=== PATIENT | male | born 1960 | race Caucasian/White ===

== ENCOUNTER 2023-11-18 11:47 | Observation (INO) ==
--- OUTSIDE RECORDS SUMMARY | 2023-11-18 11:51 | External Medical Summary | Continuity of Care Document ---
Author Name Unknown Organization [id number] Address [address] [place] [phone] Care Team Providers Care Log Stacker Operator Name Role Phone Veronica Owens Primary Care Physician [phone] [id number] Date(s): 11/15/23 - 11/15/23 [facility] 0 [facility] [address] [place] [id number] Encounter Diagnosis Gout of left foot(Discharge Diagnosis) - 11/15/23 Hallux rigidus, left foot(Discharge Diagnosis) - 11/15/23 Metatarsalgia, left foot(Discharge Diagnosis) - 11/15/23 Plantar fasciitis, left(Discharge Diagnosis) - 11/15/23 Discharge Disposition: Home or Self Care Attending Physician: HAMILTON Beasley Christina L Allergies, Adverse Reactions, Alerts No Known Medication Allergies Assessment and Plan Extracted from: Title:Follow Up Visit Author:HAMILTON Beasley Ch ristina L Date:11/15/23 1.Gout of left foot At this point patient continues to do well with conservative treatment and 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 I have a hard timerecommending for patient to have surgery on this area when the tophus is not creating any frictionit is not causing an open wound is causing no pain or discomfortI think if anything were to change and worsen would recommend surgical intervention of tophus excision and first MPJ fusionbut at this point patient recommendedto continue supportive shoe gear with a wide soft toe box follow-up in 1 year or sooner if any problems arise. I spent 2 minute planning including prepping note and chart review. I spent 11 minute zslz-zz-nymy interaction with patient addressing issuesdiscussed in visit today. I spent 3 minute time in postop visitplanning including note finishing in depart process. Total time spent on patient visit 16 minutes. 2.Hallux rigidus, left foot 3.Metatarsalgia, left foot 4.Plantar fasciitis, left Immunizations Given and Recorded Vaccine Date Status Refusal Reason influenza virus vaccine, inactivated 02/24/20 Davis rded influenza virus vaccine, inactivated 03/07/19 Davis rded influenza virus vaccine, inactivated 01/24/18 Davis rded zoster vaccine, inactivated 1 02/27/19 Given zoster vaccine, inactivated 12/26/18 Given tetanus toxoid 10/20/14 Recorded 1Result Comment: Diluent: [id number] Exp-02/04/2021 [facility] Medications fenofibrate 160 mg oral tablet Start: 01/17/23 2:09:00 PM EDT, See Instructions, Disp# 90 tab, Refills: 3, Take 1 tablet by mouth once daily, [facility] Start Date: 01/17/23 Status: Ordered ICaps AREDS 2 Start: 01/13/22 7:55:00 AM EDT, See Instructions, 1 tab daily Start Date: 01/13/22 Status: Ordered losartan 25 mg oral tablet Start: 09/24/23 4:32:00 PM EDT, 1 tab, PO, Daily, Disp# 30 tab, Refills: 3, [facility] Start Date: 09/24/23 Stop Date: 01/22/24 Status: Ordered Zepbound 5 mg/0.5 mL subcutaneous solution Start: 10/24/23 1:28:00 PM EDT, 5 mg =, subQ, q7days, Disp# 4 mL, [facility] Start Date: 10/24/23 Status: Ordered Mental Status 11/15/23 Barriers to Learning one year None evide nt Mandatory Health Literacy Documentation Yes Health Literacy Communication Barriers N ever Primary Language Tajik Problem List Condition Confirmation Course Effective Dates Status Health Status Informant Alcohol abuse Confirmed Active Current drinker Confirmed Active Elevated blood pressure reading Confirmed Active Gout of left foot Confirmed Active 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 Hypertriglyceridemia Confirmed Active High blood triglycerides Confirmed Active Joint pain Confirmed Active Facial skin lesion Confirmed Active Lower urinary tract symptoms (LUTS) Confirmed Active Metatarsalgia, left foot Confirmed Active Microalbuminuria Confirmed Active Onychomycosis Confirmed Active Plantar fasciitis, left Confirmed Active Rib pain on left side Confirmed Active Seasonal allergies Confirmed Active Seborrheic dermatitis of scalp Confirmed Active Skin sensation disturbance Confirmed Active Hallux rigidus, left foot Confirmed Active Weight disorder Confirmed Active Diagnosis Diagnosis Type Effective Dates Health Status Cl inical Service Informant Gout of left foot Discharge Diagnosis 11/15/23 Non-Specified Metatarsalgia, left foot Discharge Diagnosis 11/15/23 Non-Specified Hallux rigidus, left foot Discharge Diagnosis 11/15/23 Non-Specified Plantar fasciitis, left Discharge Diagnosis 11/15/23 Non-Specified Procedures Procedure Date Related Diagnosis Body Site Status Colonoscopy 1 03/23/21 Completed Chest X-ray 2 07/11/19 Completed X-ray of rib 3 07/11/19 Completed Shave biopsy and cauterisation of skin 12/25/17 Completed Colonoscopy 03/16/16 Completed X-ray 4 03/02/15 Completed R Hand XRAY 5 10/23/14 Completed Shave biopsy and cauterizati on of skin 6 06/18/14 Completed 1COLO to cecum, 4 mm cecal polyp CS, 2Impression: No acute cardiopulmonary disease. 3Impression: No fractures identified. 44 views of right knee reviewed and shows no acute abnormality or significant DJD. 5No acute fx or radiopaque foreign body identified within the right hand Moderate to marked soft tissue swelling Cortical irregularity suggestive of old injury of the distal tuft of the distal phalanx of the right 2nd finger. 6left medial back Social History Social History Type Response Smoking Status Never smoked cigaret sayra Sex Ortho Outpt Note * HAMILTON Beasley, Tara Dent: PERFORM Event Display: Ortho Outpt Note Authored Date: [id number] Chief Complaint left foot follow-up Primary Care Provider MD Roman, Veronica Subjective Patient is a very [id number] male last seen May 15, 2023. Initially seen for left foot pain -I discussed with patient hallux rigidus and plantar fasciitisI discussed that his painwas secondary to arthritisof the great toe jointand he has developed arthritis of the great toe joint secondary to his history of gout. His pain was pretty mildand I had recommended conservative treatment,I discussed different shoesthat would be accommodative and wide enough for his arthritisdiscussed could consider orthotics but recommended to delaydiscussed if his pain did not improve would recommend a first metatarsal phalangeal joint fusionwith removal of the gouty tophusto prevent transfer of weight to the second and third metatarsal headsand to provide stability throughout the footpatient follows up today. -Patient continues to remain pain-freehas no acute concernsthe tophus itself continues to not cause any discomfort or issuesaccommodates for the tophus by wearing shoes with a wide soft toe boxoverall has no new concerns today. Review of Systems No pertinent positives Objective Physical Exam Problem focused left foot: X-rays were taken May 01 by his primary care provider showing a large gouty tophus essentially shadow but on x-ray and also showing nonuniform joint space narrowing of the left first metatarsal phalangeal joint. Dorsalis pedis pulse palpable 2 out of 4, posterior tibial pulse palpable 1 out of 4, capillary refill time less than 3 seconds, skin turgor is at all digits of the left foot pedal hair is present. Neurovascular status grossly intact all digits of the left foot. History of varicosities present left lower extremity Left first metatarsal phalangeal joint with largegouty tophus present,there is a history of complete [id number] arthritisthere is crepitus but essentially no painpatient will at times favorthe second and third metatarsalsbut currently nontendersupported with comfortable shoe gear with wide soft toe box. 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 I have a hard timerecommending for patient to have surgery on this area when the tophus is not creating any frictionit is not causing an open wound is causing no pain or discomfortI think if anything were to change and worsen would recommend surgical intervention of tophus excision and first MPJ fusionbut at this point patient recommendedto continue supportive shoe gear with a wide soft toe box follow-up in 1 yearor sooner if any problems arise. I spent 2 minute planning including prepping note and chart review. I spent 11 spcjxjrvmv-dz-atis interaction with patient addressing issuesdiscussed in visit today. I spent 3minute time in postop visitplanning including note finishing in depart process. Total time spent on patient visit 16 minutes. 2.Hallux rigidus, left foot 3.Metatarsalgia, left foot 4.Plantar fasciitis, left Electronic Signature on File Electronically Reviewed/Signed by: Tara Beasley DPM Author Signature Dt/Tm:11/15/2023 02:03 PM Division of Sports Medicine CLR Patient Care team information Care Team Personnel Name: MD Roman, [place] Position: Physician - Family Med Member Role: Primary Care Provider Address: Address: [address] [place] [address], [place] [address] Care Team Related Persons Name: JOHANNA COMBS Address: home [address] [place] [address], [place] [phone]
--- OUTSIDE RECORDS SUMMARY | 2023-11-18 11:51 | External Medical Summary | Continuity of Care Document ---
Author Name Unknown Organization [address] [id number] Care Team Providers Care Personal Lines Sales Rep Name Role Phone OleglibraVeronica Primary Care Physician [phone] [id number] Date(s): 08/22/23 - 08/22/[address] [address] [phone] Encounter Diagnosis Body mass index [BMI] 38.0-38.9, adult(Discharge Diagnosis) - 08/22/23 Hyperlipidemia(Discharge Diagnosis) - 08/22/23 Hypertension(Discharge Diagnosis) - 08/22/23 Discharge Disposition: Home or Self Care Attending Physician: DAMIAN Becker Danielle B Allergies, Adverse Reactions, Alerts No Known Medication Allergies Immunizations Given and Recorded Vaccine Date Status Refusal Reason influenza virus vaccine, inactivated 02/24/20 Davis rded influenza virus vaccine, inactivated 03/07/19 Davis rded influenza virus vaccine, inactivated 01/24/18 Davis rded zoster vaccine, inactivated 1 02/27/19 Given zoster vaccine, inactivated 12/26/18 Given tetanus toxoid 10/20/14 Recorded 1Result Comment: Diluent: [id number] Exp-02/04/2021 [facility] Medications fenofibrate 160 mg oral tablet Start: 01/17/23 14:09:00 EDT, See Instructions, Disp# 90 tab, Refills: 3, Take 1 tablet by mouth once daily, Pharmacy: [facility] Start Date: 01/17/23 Status: Ordered ICaps AREDS 2 Start: 01/13/22 7:55:00 EDT, See Instructions, 1 tab daily Start Date: 01/13/22 Status: Ordered losartan 25 mg oral tablet Start: 05/25/23 11:38:00 EST, 1 tab, PO, Daily, Disp# 30 tab, Refills: 3, Pharmacy: [facility] Start Date: 05/25/23 Stop Date: 09/22/23 Status: Ordered Zepbound 2.5 mg/0.5 mL subcutaneous solution Start: 08/23/23 12:57:00 EDT, 2.5 mg =, subQ, q7days, Disp# 4 each, Pharmacy: [facility] Start Date: 08/23/23 Status: Ordered Mental Status 08/22/23 Barriers to Learning one year None evide nt Mandatory Health Literacy Documentation Yes Health Literacy Communication Barriers N ever Primary Language Australian Problem List Condition Confirmation Course Effective Dates [...] Diagnosis Diagnosis Type Effective Dates Health Status Clinical Service Informant Body mass index [BMI] 38.0-38.9, adult Discharge Diagnosis 08/22/23 Non-Specified Hyperlipidemia Discharge Diagnosis 08/22/23 Non-Specified Hypertension Discharge Diagnosis 08/22/23 Non-Specified Procedures Procedure Date Related Diagnosis Body [...] the right 2nd finger. 6left medial back Vital Signs Most recent to oldest [Reference Range]: 1 Height 180 cm (08/22/23 2:27 PM) Patient Weight 124 kg (08/22/23 2:27 PM) Body Mass Index 38.27 kg/m2 (08/22/23 2:27 PM) Heart Rate 91 bpm (08/22/23 2:27 PM) Respiratory Rate 18 br/min (08/22/23 2:27 PM) Blood Pressure 146/80mmHg (08/22/23 2:27 PM) Cuff Pulse Pressure 66 mmHg (08/22/23 2:27 PM) Social History Social History Type Response Smoking Status Never smoked cigaret sayra Sex Patient Care team information Care Team Personnel Name: MD Roman, [place] Position: Physician - Family Med Member Role: Primary Care Provider Address: Address: [address] [place] [address] [place] Care Team Related Persons Name: JOHANNA COMBS Address: home [address] [place], [place] [address]LEAN[place]O [phone] Name: JOHANNA COMBS Address: [facility] Address: home [address] [place] [address] [place] [phone]
--- OUTSIDE RECORDS SUMMARY | 2023-11-18 11:51 | External Medical Summary | Continuity of Care Document ---
Author Name Unknown Organization [address] Address [address] [place] [phone] Care Team Providers Care Machine Rope Maker Name Role Phone MaikelayazVeronica Primary Care Physician [phone] [id number] Date(s): 10/03/23 - 10/03/[address] [phone] Encounter Diagnosis Lower urinary tract symptoms (LUTS)(Discharge Diagnosis) - 10/03/23 Hearing reduced(Discharge Diagnosis) - 10/03/23 Weight disorder(Discharge Diagnosis) - 10/04/23 Discharge Disposition: Home or Self Care Attending Physician: DAMIAN Beckre Danielle B Allergies, Adverse Reactions, Alerts No Known Medication Allergies Assessment and Plan Extracted from: Title:Office Visit Note Author:DAMIAN Becker Dan ielle B Date:10/03/23 1.Weight disorder Patient's BMI when starting Zepbound 1 month ago was 38.27. Since thattime, patient has lost almost 2 kg. Patient is currently on 2.5 mg dose and would like to remain on current dose. He is tolerating it well with some mild symptoms of nausea. No constipation, vomiting. Refill sent to pharmacy. -CBC, CMP, A1c, lipid pending. 2.Hearing reduced Patient requests referral to ENTfor history of crackling and poppingin bilateral ears andprior cerumen impactions. Patient deferred examor flush in office today-only wants referral to ENT. 3.Lower urinary tract symptoms (LUTS) Patient request PSA screening. Had previous PSA 03/2023 and which was elevated at 8.46and had workup with urology. Patient denies personal or family history of prostate cancer. Order placed. -Follow up with Dr. Owens in 3 months. Sooner if questions or concerns. Immunizations Given and Recorded Vaccine Date Status Refusal Reason influenza virus vaccine, inactivated 02/24/20 Davis rded influenza virus vaccine, inactivated 03/07/19 Davis rded influenza virus vaccine, inactivated 01/24/18 Davis rded zoster vaccine, inactivated 1 02/27/19 Given zoster vaccine, inactivated 12/26/18 Given tetanus toxoid 10/20/14 Recorded 1Result Comment: Diluent: [id number] Exp-02/04/2021 [employer] Medications fenofibrate 160 mg oral tablet Start: 01/17/23 14:09:00 EDT, See Instructions, Disp# 90 tab, Refills: 3, Take 1 tablet by mouth once daily, [email or web address] Start Date: 01/17/23 Status: Ordered ICaps AREDS 2 Start: 01/13/22 7:55:00 EDT, See Instructions, 1 tab daily Start Date: 01/13/22 Status: Ordered losartan 25 mg oral tablet Start: 09/24/23 16:32:00 EDT, 1 tab, PO, Daily, Disp# 30 tab, Refills: 3, Pharmacy: [facility] Start Date: 09/24/23 Stop Date: 01/22/24 Status: Ordered Zepbound 2.5 mg/0.5 mL subcutaneous solution Start: 10/03/23 7:52:00 EDT, See Instructions, Disp# 4 mL, Refills: 1, INJECT 1 SYRINGE SUBCUTANEOUSLY ONCE A WEEK, Pharmacy: [facility] Start Date: 10/03/23 Status: Ordered Mental Status 10/03/23 Barriers to Learning one year None evide nt Mandatory Health Literacy Documentation Yes Health Literacy Communication Barriers N ever Primary Language Slovenian Problem List Condition Confirmation Course Effective Dates [...] Dates Health Status Cl inical Service Informant Lower urinary tract symptoms (LUTS) Discharge Diagnosis 10/03/23 Non-Specified Hearing reduced Discharge Diagnosis 10/03/23 Non-Specified Weight disorder Discharge Diagnosis 10/04/23 Procedures Procedure Date Related Diagnosis Body Site [...] Most recent to oldest [Reference Range]: 1 Patient Weight 122.7 kg (10/03/23 7:31 AM) Heart Rate 97 bpm (10/03/23 7:31 AM) Blood Pressure 138/82mmHg (10/03/23 7:31 AM) Cuff Pulse Pressure 56 mmHg (10/03/23 7:31 AM) Social History Social History Type Response Smoking Status Never smoked cigaret sayra Sex FCM Outpt Note * DAMIAN Becker Danielle B: PERFORM Event Display: FCM Outpt Note Authored Date: [id number] Chief Complaint follow up discuss weight loss medication History of Present Illness Mr. Combs is a 63-year-old male patient of Dr. Owens here for follow-up of zepbound. He statesthat he is currently on2.5 mg doseand he is tolerating it well. No constipationand minimalnausea. He has lost about 1.3 kg since visita month ago, but patient statesthe medication hasbeen great for calming food cravings. He would like to continue at current dose. Patient is also requesting referral toENTfor muffled hearing. He states he has popping and cracklingin the earswith history of cerumen impaction. He denies any ear pain, otalgia, fever, chills. Did not want to have ears flushedor examined in office today-just wants referral to ENT. Patient also requests PSA screening. He states he had history of elevated PSA in the past for which she saw urology. Denied personal or family history ofprostate cancer. Review of Systems Negative unless stated in HPI. Physical Exam Vitals & Measurements HR:97(Monitored) BP:138/82 SpO2:95% WT:122.7kg WT:122.700kg(Dosing) PHQ2 Data(Data Documented on:10/03/2023 07:31) Emotional health assessment NEGATIVE CONSTITUTIONAL: Well-developed, well nourished. No acute distress. NEUROLOGICAL: Patient alert, orientated, memory intact. Gait steady. HEENT: Head is normocephalic. Eyes- symmetrical, no erythema or discharge. LUNGS: Respirations even and unlabored, chest expansion symmetrical. Lung sounds clear in all lobes, no wheezing, crackles, or adventitious breath sounds. HEART: Rate and rhythm regular. No cardiac murmur, click, or rub noted. ABDOMEN: Soft, nontender. Bowel sounds active in all four quadrants. INTEGUMENTARY: Skin dry, warm to touch. No rash, wounds, lesions noted on visible skin. PSYCHOSOCIAL: Calm and cooperative, interacts appropriately with staff. Assessment/Plan 1.Weight disorder Patient's BMI when starting Zepbound 1 month ago was 38.27. Since thattime, patient has lost almost 2 kg. Patient is currently on 2.5 mg dose and would like to remain on current dose. He istolerating it well with some mild symptoms of nausea. No constipation, vomiting. Refill sent topharmacy. -CBC, CMP, A1c, lipid pending. 2.Hearing reduced Patient requests referral to ENTfor history of crackling and poppingin bilateral ears andprior cerumen impactions. Patient deferred examor flush in office today-only wants referral to ENT. 3.Lower urinary tract symptoms (LUTS) Patient request PSA screening. Had previous PSA 03/2023 and which was elevated at 8.46and had workup with urology. Patient denies personal or family history of prostate cancer. Order placed. -Follow up with Dr. Owens in 3 months. Sooner if questions or concerns. 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 Weight disorder Procedure/Surgical History Colonoscopy| Service Date: 1Chest X-ray| Service Date: 07/11/2019X-ray of rib| Service Date: 07/11/2019Shave biopsy and cauterisation of skin| Service Date: 12/25/2017Colonoscopy| Service Date: 03/16/2016X-ray| Service Date: 03/02/2015R Hand XRAY| Service Date: 10/23/2014Shave biopsy and cauterization of skin| Service Date: 06/18/2014 Medications fenofibrate(fenofibrate 160 mg oral tablet), See Instructions, 3 refills losartan(losartan 25 mg oral tablet), 25 mg= 1 tab, PO, Daily, 3 refills multivitamin with minerals(ICaps AREDS 2), See Instructions tirzepatide(Zepbound 2.5 mg/0.5 mL subcutaneous solution), See Instructions, 1 refills Allergies No Known Medication Allergies Social History Smoking Status Never smoked cigarettes Alcohol Use:Current Type:Liquor Frequency:3-5 times per week Average drinks per episode in last year:2 Employment/School Status:Unemployed 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 Skin cancer: Brother. Health Status Family Member(s) Mother: History is negative Family Member(s) Relationship: Father, Age: Unknown, Cause: Brain Cancer Immunizations Vaccine Date Status influenza virus vaccine, inactivated 02/24/2020 Recorded influenza virus vaccine, inactivated 03/07/2019 Recorded zoster vaccine, inactivated 02/27/2019 Given Comments : Diluent: [id number] Exp-02/04/2021 [facility] zoster vaccine, inactivated 12/26/2018 Given influenza virus vaccine, inactivated 01/24/2018 Recorded tetanus toxoid 10/20/2014 Recorded Recommendations Health Maintenance Pending(in the next year) OverDue Adult Influenza Vaccine due11/24/22and every 1year Due Adult COVID-19 Vaccination due10/04/23Unknown Frequency Adult Social Determinants of Health Screening due10/04/23Unknown Frequency Adult Tdap/Td Vaccine due10/04/23Unknown Frequency Hepatitis C Screening due10/04/23One-time only Pneumococcal Vaccine Adults and Adolescents with Chronic Illness due10/04/23One-time only Satisfied(in the past 1 year) Satisfied Body Mass Index on08/22/23.Satisfied by GABY Shepard Bobbi Lipid Screening on04/23/23.Satisfied by Contributor_system, [employer] Electronic Signature on File Electronically Reviewed/Signed by: DAMIAN Villa Author Signature Dt/Tm:10/04/2023 07:33 AM Family Medicine DBN Patient Care team information Care Team Personnel Name: MD Roman, [place] Position: Physician - Family Med Member Role: Primary Care Provider Address: Address: [address] [place] [address], [place] [address] Care Team Related Persons Name: JOHANNA COMBS Address: home [address] [place] [address], [place] [phone]"
[2023-11-18 12:22] LABS: Basophils # (auto) 0.05 K/uL (0.00-0.20); Basophils % (auto) 1.1 %; Eosinophils # (auto) 0.05 K/uL (0.00-0.50); Eosinophils % (auto) 1.1 %; Hematocrit (blood only) 49.1 % (42.0-52.0); Hemoglobin 16.5 g/dl (14.0-18.0); Immature Granulocytes # (auto) 0.01 K/uL (0.01-0.20); Immature Granulocytes % (auto) 0.2 %; Lymphocytes # (auto) 0.67 K/uL (1.20-3.40); Lymphocytes % (auto) 14.4 %; Mean Corpuscular Hemoglobin 30.7 pg (25.0-34.0); Mean Corpuscular Hgb Conc 33.6 g/dL (32.0-36.0); Mean Corpuscular Volume 91.3 fL (80.0-100.0); Monocytes # (auto) 0.45 K/uL (0.11-0.59); Monocytes % (auto) 9.7 %; Neutrophils # (auto) 3.41 K/uL (1.40-6.50); Neutrophils % (auto) 73.5 %; Platelet Count 156 K/uL (130-400); RDW Coefficient of Variation 13.3 % (11.5-14.5); RDW Standard Deviation 44.9 fL (36.4-46.3); Red Blood Count 5.38 M/uL (4.70-6.10); White Blood Count 4.64 K/ul (4.8-10.8)
[2023-11-18 12:37] LABS: Albumin Globulin Ratio 1.6 (0.9-2); Albumin Level 4.4 gm/dl (3.4-5.0); BUN Creatinine Ratio 14.3 (10-20); Bilirubin,Total 1.1 mg/dl (0.2-1.0); Calcium 9.4 mg/dl (8.6-10.3); Creatinine Clr Calc Pharmacy 99.7 ml/min; Est GFR (African American) 94.1 ml/min; Est GFR (Non-African American) 81.2 ml/min; Globulin 2.7 gm/dl (2.5-4.0); Magnesium 1.8 mg/dl (1.7-2.4); Potassium 4.5 mmol/L (3.5-5.1); Total Protein 7.1 gm/dl (6.0-8.3)
[2023-11-18 12:43] LABS: Troponin I High Sensitivity 10.9 pg/ml (0-20)
--- NOTE | 2023-11-18 12:47 | Emergency Department Note ---
Impression & Plan Heart palpitations, SOB (shortness of breath), Chest pain ED Provider Note NAME: LEATHA COMBS AGE: 63 SEX: Male INFORMANT: Patient ED PROVIDER(S): Rob Cary MD CHIEF COMPLAINT: Palpitations and chest pressure PLAN: Disposition: Admitted Outpatient prescription management: none Referral: None MEDICAL DECISION MAKING: Patient evaluated. ECG did not reveal any acute ischemia. Cardiac monitoring showed no dysrhythmia initially. Patient CBC and chemistry panels were unremarkable. Patient had a negative cardiac troponin. D-dimer was mildly elevated. Patient went through ultrasound imaging of the left lower extremity and this was negative for DVT. CT PE study was performed and was negative for acute pulmonary embolism or other pulmonary pathology. Extensive coronary calcification was noted per radiology. I did review this. Consulted with Dr. Valadez of cardiology. Given the patient's risk factors and escalating symptoms over the last few days he recommended further management in the hospital for cardiac rule out and stress testing. Patient and in agreement. [facility]. 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 Vital Signs: reviewed and remarkable for mild hypertension Additional History obtained from: none Chronic Medical/Social Conditions affecting care: Hypertension, high cholesterol Prior/ Outside/ External records reviewed: none Differential Diagnosis: PVCs, dysrhythmia, cardiac ischemia, aortic dissection, pulmonary embolism, pneumothorax, pneumonia, pericarditis, myocarditis, esophageal rupture, GERD, cholecystitis, pancreatitis, musculoskeletal, as well as other pathologies. Diagnostics, independently interpreted by me: EC Lead ECG performed and revealed Normal sinus rhythm at 80, normal [place], QRS normal. No elevation or depression. No PACs or PVCs Cardiac Monitoring: Cardiac monitoring ordered by me: The patient was placed on continuous cardiac monitoring and observed. It revealed a normal sinus rhythm at 82 bpm. Occasional PVC noted. Medical decision rules: Patient is moderate by HEART score Imaging studies: Chest x-ray. Findings: A chest x-ray was performed and revealed no pneumothorax, effusion, infiltrate, pulmonary edema, free air under the diaphragm, or wide mediastinum. Impression: No acute disease. HPI: 63 year old Male arrives for evaluation of palpitations. This started months ago and is more prominent yesterday. The patient also notes the following associated symptoms, chest pain yesterday as well as shortness of breath with exertion. The patient has taken no medication for relieving factors. Current pain is rated as 0/10. Patient does note having a fall a few weeks ago. He had swelling and significant bruising of the left leg. He states that is healing and getting better but there is still residual swelling. He was told that he had a superficial blood clot but is not on any blood thinners pt denies LOC, headache, fevers, chills, diaphoresis, visual changes, neck pain, nausea, vomiting, abdominal pain, back pain, melena, hematochezia, urinary symptoms, numbness, weakness, lymphadenopathy, rash, or other complaints. . PAST MEDICAL HISTORY: See Below, hypertension, high cholesterol PAST SURGICAL HISTORY: See Below, SOCIAL HISTORY: See Below, HOME MEDICATIONS: See Below ALLERGIES: See Below VITALS: See Below PHYSICAL EXAMINATION: GENERAL: Awake, alert, well-appearing, in no distress HENT: Normocephalic, atraumatic. Oropharynx unremarkable. EYES: Normal conjunctiva. Sclera non-icteric. NECK: Inspection normal. Non-tender. Supple. No nuchal rigidity. FROM. No masses. RESPIRATORY: Clear to auscultation. No wheezes. No rales. Normal respiratory effort. CARDIAC: Normal rate. Normal rhythm. No murmurs. No rubs. Extremities warm and well perfused. Pulses equal. No JVD. GI: Soft, non-distended. No tenderness to palpation. No rebound or guarding. No masses. RECTAL: Deferred. MUSCULOSKELETAL: Atraumatic. Chest examination reveals no tenderness. The back is symmetrical on inspection without obvious abnormality. There is no CVA tenderness to palpation. No joint edema. LOWER EXTREMITIES: Left lower extremity larger than the right lower extremity. There is old appearing ecchymosis around the knee and inferiorly over the calf. Normal PCL/ACL testing on the. No significant laxity with varus or valgus strain. There is a healing abrasion noted to the left prepatellar area without signs of infection. No palpable cords. Negative Homans' sign on the left NEURO: Normal sensorium. No sensory or motor deficits noted. SKIN: No rash or jaundice noted. PROCEDURES: none CRITICAL CARE: none OBSERVATION NOTE: none Past Med/Surg History Problem List Chest pain (Acute) SOB (shortness of breath) (Acute) Heart palpitations (Acute) BPH NOS w ur obs/LUTS Chronic prostatitis Elevated PSA Weight disorder Seborrheic dermatitis of scalp Seasonal allergies Onychomycosis Microalbuminuria Lower urinary tract symptoms (LUTS) High blood triglycerides Facial skin lesion Current drinker Alcohol abuse Medical History (Updated 11/18/23 @ 12:47 by Rob Cary MD) No pertinent past medical history Weight disorder Seborrheic dermatitis of scalp Seasonal allergies Onychomycosis Microalbuminuria Lower urinary tract symptoms (LUTS) (01/15/23) Lower urinary tract symptoms (LUTS) Hypertriglyceridemia (01/15/23) Hypertriglyceridemia High blood triglycerides Facial skin lesion Current drinker Alcohol abuse Skin sensation disturbance Skin cancer screening (01/15/23) Seborrheic keratosis (01/15/23) Seborrheic keratoses (01/23/23) Seborrheic dermatitis (01/15/23) Rib pain on left side Rash (03/21/23) Prostate cancer screening (04/23/23) Other seborrheic dermatitis (01/23/23) Joint pain Hyperlipidemia (04/23/23) Foot pain (04/23/23) Elevated blood pressure reading 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 (01/23/23) Class 2 obesity with body mass index (BMI) of 38.0 to 38.9 in adult (04/23/23) BPH (benign prostatic hyperplasia) (04/24/23) Body mass index [BMI] 38.0-38.9, adult (04/23/23) Blood pressure elevated without history of HTN (04/24/23) Gout Dog bite of hand Dog bite Cellulitis Family History (Updated 05/22/23 @ 10:33 by Espinoza Hayden) Father Brain cancer Social History (Updated 05/22/23 @ 10:33 by Espinoza Hayden) Smoking Status: Former smoker Hx Alcohol Use: Yes Preferred Language: Sami marital status: current occupational status: employed Feels Safe at Home: Yes Allergies Allergies Allergy/AdvReac Type Severity Reaction Status Date / Time No Known Allergies Allergy Unverified 07/18/23 10:26 Home Meds Home Medications Medication Instructions Recorded Confirmed fenofibrate 160 mg tablet 160 mg PO DAILY 05/14/23 11/18/23 multivitamin with minerals 1 cap PO DAILY 05/14/23 11/18/23 losartan 25 mg tablet 25 mg PO DAILY 11/18/23 11/18/23 tirzepatide (weight loss) 5 mg/0.5 5 mg subcut WK 11/18/23 11/18/23 mL subcutaneous pen injector (Zepbound) Results & Data (ED) Vital Signs Vital Signs - 24 hr 11/18/23 11:50 11/18/23 12:18 11/18/23 14:32 Temperature 36.6 C Temperature Source Temporal Artery Scan Pulse Rate 88 82 Pulse Rate [Apical] 84 Pulse Rhythm [Apical] Pulse Strength [Apical] Normal Respiratory Rate 20 18 Respiratory Effort / Characteristics Non-Labored Spontaneous Respiratory Depth Normal Respiratory Pattern Regular Blood Pressure 158/100 H Blood Pressure [Left Arm] 154/75 H Blood Pressure Mean 119 Blood Pressure Mean [Left Arm] 101 Pulse Oximetry 96 95 Oxygen Delivery Method Room Air Room Air Sepsis Recent Fever Within 48 Hours No Sepsis New/Unexplained Change in Mental Status N/A Sepsis Action Taken by Nursing No Action Required 11/18/23 15:59 11/18/23 16:27 Temperature Temperature Source Pulse Rate 83 Pulse Rate [Apical] 90 Pulse Rhythm [Apical] Regular Pulse Strength [Apical] Normal Respiratory Rate 19 Respiratory Effort / Characteristics Non-Labored Spontaneous Respiratory Depth Normal Respiratory Pattern Regular Blood Pressure Blood Pressure [Left Arm] 164/104 H Blood Pressure Mean Blood Pressure Mean [Left Arm] 124 Pulse Oximetry 95 Oxygen Delivery Method Room Air Sepsis Recent Fever Within 48 Hours Sepsis New/Unexplained Change in Mental Status Sepsis Action Taken by Nursing Laboratory Data 11/18/23 12:05 11/18/23 12:05 Lab Results 11/18/23 11/18/23 11/18/23 Range/Units 12:05 12:50 Unknown WBC 4.64 L (4.8-10.8) K/ul RBC 5.38 (4.70-6.10) M/uL Hgb 16.5 (14.0-18.0) g/dl Hct 49.1 (42.0-52.0) % MCV 91.3 (80.0-100.0) fL MCH 30.7 (25.0-34.0) pg MCHC 33.6 (32.0-36.0) g/dL RDW Std Deviation 44.9 (36.4-46.3) fL RDW Coeff of Rajesh 13.3 (11.5-14.5) % Plt Count 156 (130-400) K/uL MPV 9.0 L (9.4-12.4) fL Immature Gran % (Auto) 0.2 % Neut % (Auto) 73.5 % Lymph % (Auto) 14.4 % [place] % (Auto) 9.7 % Eos % (Auto) 1.1 % Baso % (Auto) 1.1 % Neut # (Auto) 3.41 (1.40-6.50) K/uL Lymph # (Auto) 0.67 L (1.20-3.40) K/uL [place] # (Auto) 0.45 (0.11-0.59) K/uL Eos # (Auto) 0.05 (0.00-0.50) K/uL Baso # (Auto) 0.05 (0.00-0.20) K/uL Immature Gran # (Auto) 0.01 (0.01-0.20) K/uL D-Dimer 540 H* (0-500) ug/L FEU Sodium 137 (136-145) mmol/L Potassium 4.5 (3.5-5.1) mmol/L Chloride 102 (98-107) mmol/L Carbon Dioxide 28 (21-32) mmol/L Anion Gap 7 (3-11) BUN 14 (6-23) mg/dl Creatinine 0.98 (0.6-1.4) mg/dl Est Cr Clr Drug Dosing 99.7 ml/min Est GFR ( Amer) 94.1 ml/min Est GFR (Non-Af Amer) 81.2 ml/min BUN/Creatinine Ratio 14.3 (10-20) Glucose 108 H (70-99(Fasting)) mg/dl Calcium 9.4 (8.6-10.3) mg/dl Magnesium 1.8 (1.7-2.4) mg/dl Total Bilirubin 1.1 H (0.2-1.0) mg/dl AST 30 (13-39) U/L ALT 27 (7-52) U/L Alkaline Phosphatase 28 L (34-104) U/L Troponin I High Sens 10.9 (0-20) pg/ml B-Natriuretic Peptide 25 (0-100) pg/ml Total Protein 7.1 (6.0-8.3) gm/dl Albumin 4.4 (3.4-5.0) gm/dl Globulin 2.7 (2.5-4.0) gm/dl Albumin/Globulin Ratio 1.6 (0.9-2) TSH 3.337 (0.300-4.500) uIu/ml Urine Color Yellow Urine Appearance Clear (Clear) Urine pH 6.5 (4.5-7.5) Ur Specific [place] > 1.045 H (1.000-1.030) Urine Protein Trace H (Negative) Urine Glucose (UA) Negative (Negative) Urine Ketones Trace H (Negative) Urine Blood Negative (Negative) Urine Nitrite Negative (Negative) Urine Bilirubin Negative (Negative) Urine Urobilinogen Negative (Negative) Ur Leukocyte Esterase Negative (Negative) Urine WBC (Auto) 0-5 (0-5) /hpf Urine RBC (Auto) 0-2 (0-2) /hpf U Hyaline Cast (Auto) 11-20 H (0-2) /lpf U Epithel Cells (Auto) 0-2 (0-2) /hpf Urine Bacteria (Auto) None Seen (None Seen) Hyaline Casts Present A (None Presnt) /lpf Lyme Disease Screen Negative (Negative) Administered Medications Discontinued Medications Aspirin (Aspirin Chew 324 Mg) 324 mg PO NOW STA Stop: 11/18/23 15:38 Last Admin: 11/18/23 15:58 Dose: 324 mg Documented By: ZABRINA Ioversol (Optiray 320 125ml) 112 ml IV ONCE ONE Stop: 11/18/23 13:28 Last Admin: 11/18/23 13:28 Dose: 112 ml Documented By: AGNES Imaging Data Radiologist's Impression: Chest X-Ray 11/18/23 12:03 SINGLE VIEW CHEST CLINICAL HISTORY: Dysrhythmia FINDINGS: An AP, portable, upright chest radiograph is compared to study dated 07/11/2019. The heart is enlarged noting atherosclerotic calcification of the thoracic aorta. The pulmonary vasculature is not congested. Emphysematous change is suspected. Chronic interstitial thickening is similar to previous. There is mild bibasilar scarring/atelectasis. No airspace consolidation or large pleural effusion is identified. No pneumothorax is seen. The bony thorax is grossly intact. IMPRESSION: Cardiomegaly with no active disease in the chest. ACT 112: Negative or not required by law. Electronically signed by: King Ruiz M.D. 11/18/2023 1:11 PM Chest CTA 11/18/23 12:54 CT ANGIOGRAM OF THE CHEST CLINICAL HISTORY: Atypical chest pain. Palpitations. D-dimer. COMPARISON STUDY: Chest x-ray dated 11/18/2023. TECHNIQUE: Following the IV administration of 112 cc of Optiray 320, CT angiogram of the chest was performed from the upper abdomen to the thoracic inlet utilizing the pulmonary embolus protocol. Images are reviewed in the axial, sagittal, and coronal planes. 3-D MIPS images are created and assessed. IV contrast was administered without complication. A dose lowering technique was utilized adhering to the principles of ALARA. CT DOSE: 1024.36 mGy.cm FINDINGS: Thyroid: Imaged portions of the thyroid gland are normal in size and attenuation. Thoracic aorta: There is atherosclerotic calcification of the thoracic aorta, which is normal in caliber and demonstrates standard 3-vessel arch anatomy. No dissection is seen. Pulmonary vasculature: The pulmonary trunk is normal in caliber. There are no filling defects identified in main, lobar, or segmental pulmonary branches to suggest pulmonary embolus. Heart: The heart is enlarged and without pericardial effusion. The coronary arteries are densely calcified. Lungs and pleural spaces: There is no airspace consolidation or pleural effusion. Dependent scarring/atelectasis is noted at the lung bases. The trachea and central airways are clear. Mediastinum: There is no mediastinal lymphadenopathy. Priya: Clear. Axillae: There is no axillary lymphadenopathy. Upper abdomen: The liver is enlarged and steatotic. Skeletal structures: No lytic or blastic bony lesions are seen. Mild degenerative change is seen in the shoulders and thoracic spine. IMPRESSION: 1. There is no evidence of pulmonary embolus in the main, lobar, or segmental pulmonary arteries. 2. There is no airspace consolidation or pleural effusion. 3. Cardiomegaly noting advanced coronary artery atherosclerosis. 4. Hepatomegaly and hepatic steatosis. 5. Additional findings as above. ACT 112: Negative or not required by law. Electronically signed by: King Ruiz M.D. 11/18/2023 2:33 PM Venous Doppler Study 11/18/23 12:54 ULTRASOUND LEFT LOWER EXTREMITY VENOUS CLINICAL HISTORY: Left leg swelling. COMPARISON STUDY: No priors. TECHNIQUE: Real-time, grayscale, and color Doppler sonography of the deep veins of the left lower extremity was performed from the inguinal crease to the calf. Compression and augmentation were utilized. FINDINGS: There is no sonographic evidence of deep venous thrombosis identified in the left lower extremity. The common femoral, superficial femoral, and popliteal veins are patent and normally compressible. The greater saphenous vein and the profunda femoris vein at the junction with the common femoral vein are clear. The visualized calf veins are patent. IMPRESSION: There is no sonographic evidence of deep venous thrombosis identified in the left lower extremity. ACT 112: Negative or not required by law. Electronically signed by: King Ruiz M.D. 11/18/2023 2:16 PM Discharge Plan Visit Data Chief Complaint: Arrhythmia/Palpitations Stated Complaint: HEART PALPITATIONS ED Provider: Rob Cary Discharge Problem: Heart palpitations, SOB (shortness of breath), Chest pain Patient Disposition: Admitted As Inpatient Discharge Instructions Interventions: ED Discharge Assessment Last Done: 11/18/23 18:08 Forms Stand Alone Forms: [facility] Prescriptions Prescriptions: No Action fenofibrate 160 mg tablet 160 mg PO DAILY multivitamin with minerals Capsule 1 cap PO DAILY Rx Instructions: Areds multivitamin losartan 25 mg tablet 25 mg PO DAILY Zepbound 5 mg/0.5 mL pen injector 5 mg SUBCUT WK Referrals Referrals: Veronica Owens MD [Primary Care Provider] -
[2023-11-18 12:52] LABS: Thyroid Stimulating Hormone 3.337 uIu/ml (0.300-4.500)
[2023-11-18 12:54] LABS: D Dimer 540 ug/L FEU (0-500)
--- NOTE | 2023-11-18 13:12 | XRay Report ---
SINGLE VIEW CHEST CLINICAL HISTORY: Dysrhythmia FINDINGS: An AP, portable, upright chest radiograph is compared to study dated 07/11/2019. The heart i s enlarged noting atherosclerotic calcification of the thoracic aorta. The pulmonary vasculature is n ot congested. Emphysematous change is suspected. Chronic interstitial thickening is similar to previo us. There is mild bibasilar scarring/atelectasis. No airspace consolidation or large pleural effusion is identified. No pneumothorax is seen. The bony thorax is grossly intact. IMPRESSION: Cardiomegaly with no active disease in the chest. ACT 112: Negative or not required by law. Electronically signed by: King Ruiz M.D. 11/18/2023 1:11 PM
[2023-11-18] MEDS: OPTIRAY 320 125ml IV ONE (13:28)
--- NOTE | 2023-11-18 14:17 | Ultrasound Report ---
ULTRASOUND LEFT LOWER EXTREMITY VENOUS CLINICAL HISTORY: Left leg swelling. COMPARISON STUDY: No priors. TECHNIQUE: Real-time, grayscale, and color Doppler sonography of the deep veins of the left lower ext remity was performed from the inguinal crease to the calf. Compression and augmentation were utilized . FINDINGS: There is no sonographic evidence of deep venous thrombosis identified in the left lower ext remity. The common femoral, superficial femoral, and popliteal veins are patent and normally compress ible. The greater saphenous vein and the profunda femoris vein at the junction with the common femora l vein are clear. The visualized calf veins are patent. IMPRESSION: There is no sonographic evidence of deep venous thrombosis identified in the left lower e xtremity. ACT 112: Negative or not required by law. Electronically signed by: King Ruiz M.D. 11/18/2023 2:16 PM
--- NOTE | 2023-11-18 14:35 | CT Scan Report ---
CT ANGIOGRAM OF THE CHEST CLINICAL HISTORY: Atypical chest pain. Palpitations. D-dimer. COMPARISON STUDY: Chest x-ray dated 11/18/2023. TECHNIQUE: Following the IV administration of 112 cc of Optiray 320, CT angiogram of the chest was pe rformed from the upper abdomen to the thoracic inlet utilizing the pulmonary embolus protocol. Images are reviewed in the axial, sagittal, and coronal planes. 3-D MIPS images are created and assessed. I V contrast was administered without complication. A dose lowering technique was utilized adhering to the principles of ALARA. CT DOSE: 1024.36 mGy.cm FINDINGS: Thyroid: Imaged portions of the thyroid gland are normal in size and attenuation. Thoracic aorta: There is atherosclerotic calcification of the thoracic aorta, which is normal in pastor caden and demonstrates standard 3-vessel arch anatomy. No dissection is seen. Pulmonary vasculature: The pulmonary trunk is normal in caliber. There are no filling defects identif ied in main, lobar, or segmental pulmonary branches to suggest pulmonary embolus. Heart: The heart is enlarged and without pericardial effusion. The coronary arteries are densely calc ified. Lungs and pleural spaces: There is no airspace consolidation or pleural effusion. Dependent scarring/ atelectasis is noted at the lung bases. The trachea and central airways are clear. Mediastinum: There is no mediastinal lymphadenopathy. Priya: Clear. Axillae: There is no axillary lymphadenopathy. Upper abdomen: The liver is enlarged and steatotic. Skeletal structures: No lytic or blastic bony lesions are seen. Mild degenerative change is seen in t he shoulders and thoracic spine. IMPRESSION: 1. There is no evidence of pulmonary embolus in the main, lobar, or segmental pulmonary arteries. 2. There is no airspace consolidation or pleural effusion. 3. Cardiomegaly noting advanced coronary artery atherosclerosis. 4. Hepatomegaly and hepatic steatosis. 5. Additional findings as above. ACT 112: Negative or not required by law. Electronically signed by: King Ruiz M.D. 11/18/2023 2:33 PM
[2023-11-18 15:38] LABS: Appearance Urine Clear (Clear); Bacteria Urine Automated None Seen (None Seen); Bilirubin Urine Negative (Negative); Blood Urine Negative (Negative); Color Urine Yellow; Epithelial Cell Urine Auto 0-2 /hpf (0-2); Glucose Urine UA Negative (Negative); Hyaline Casts Urine Present /lpf (None Presnt); Ketones Urine Trace (Negative); Leukocyte Esterase Urine Negative (Negative); Nitrite Urine Negative (Negative); Protein Urine Trace (Negative); RBC Urine Automated 0-2 /hpf (0-2); Specific Gravity Urine > 1.045 (1.000-1.030); Urobilinogen Urine Negative (Negative); WBC Urine Automated 0-5 /hpf (0-5); pH Urine 6.5 (4.5-7.5)
[2023-11-18] MEDS: ASPIRIN CHEW 324 MG PO STA (15:58)
--- NOTE | 2023-11-18 16:21 | History & Physical Report ---
Date of Service November 18, 2023 Assessment & Plan (1) Chest pain: Plan: Assessment: 1. Chest pain/palpitations. Symptoms ongoing with palpitations for years but worse recently now associated with chest pain over the last few days on and off. Troponins negative. EKG is reassuring. ER physician spoke with cardiology on- call. Tentative plan the patient received 325 aspirin in the ER. Will plan for serial troponins. Echocardiogram. Stress test in the morning if these things remain negative. And cardiology will see the patient in consultation. 2. History of hyperlipidemia. Continue home meds for now. 3. History of hypertension continue home meds for now. 4. Recent weight loss of 25 pounds with commencement of Zeppound approximately 10 weeks ago. 5. Daily alcohol use. 5 beers daily sometimes less sometimes more. No clinical evidence of alcohol withdrawal at this time. Last drink was yesterday evening. We will monitor. If there is evidence of alcohol withdrawal we will institute a withdrawal protocol. 6. Obesity. 7. Recent left leg injury approximately 2 to 3 weeks ago resolving. Ultrasound of the left lower extremity negative. 8. Hepatic steatosis/fatty liver on CTA. This needs followed clinically as an outpatient accordingly. Plan: As discussed above. Please refer to orders for further planning. History of Present Illness Chief Complaint: Chest pain/palpitations Primary Care Provider: Veronica Owens MD This is a 63-year-old male who over the last few days has had some palpitations which he has had for many years on and off. However they have been lasting longer and have been associated with some chest discomfort mid substernal. There is chest comfort but nonradiating. There is been no associated shortness of breath or diaphoresis. Due to his increasing symptomatology presented the ER for further evaluation and treatment. Further history taking the patient commenced Zepbound approximately 10 weeks ago he is down about 25 pounds in 10 weeks. He is on this for weight control. He also admits to drinking at least 5 beers a day sometimes slightly more sometimes slightly less. 2 drinks were yesterday. None today. He has never gone through alcohol withdrawal that he knows of. Upon presentation to the ER the patient had a reassuring EKG normal sinus rhythm without acute ST-T abnormalities. He had a negative troponin. He had a positive D-dimer. He had a CT of the chest which was negative for pulmonary embolism but positive for coronary calcifications which appear to be heavy on the CT. In addition he had hepatosteatosis noted on CTA of the chest. He injured his left leg some weeks ago. He is still ecchymotic and mildly swollen therefore ultrasounds of the lower extremities were performed which were negative for DVT. In the ER the patient had full-strength aspirin. We were called to admit the patient for further evaluation and treatment. Consultation was obtained with cardiology from the ER provider who recommended admission for echocardiogram serial troponins and stress test in the morning. Allergies Allergy/AdvReac Type Severity Reaction Status Date / Time No Known Allergies Allergy Unverified 07/18/23 10:26 Home Medications Medication Instructions Recorded Confirmed Type betamethasone dipropionate 0.05 % 1 applic topical DAILY PRN 05/14/23 07/18/23 History topical cream fenofibrate 160 mg tablet 160 mg PO DAILY 05/14/23 07/18/23 History ketoconazole 2 % shampoo 1 applic topical Q14D 05/14/23 07/18/23 History mometasone 0.1 % topical cream 1 applic topical DAILY 05/14/23 07/18/23 History multivitamin with minerals 1 cap PO DAILY 05/14/23 07/18/23 History lisinopril 5 mg tablet 5 mg PO DAILY 07/18/23 07/18/23 History losartan 25 mg tablet 25 mg PO DAILY 11/18/23 History tirzepatide (weight loss) 5 mg/0.5 5 mg subcut WK 11/18/23 History mL subcutaneous pen injector (Zepbound) Past Med/Surg History Problem List Chest pain (Acute) SOB (shortness of breath) (Acute) Heart palpitations (Acute) BPH NOS w ur obs/LUTS Chronic prostatitis Elevated PSA Weight disorder Seborrheic dermatitis of scalp Seasonal allergies Onychomycosis Microalbuminuria Lower urinary tract symptoms (LUTS) High blood triglycerides Facial skin lesion Current drinker Alcohol abuse Medical History (Updated 11/18/23 @ 12:47 by Rob Cayr MD) No pertinent past medical history Weight disorder Seborrheic dermatitis of scalp Seasonal allergies Onychomycosis Microalbuminuria Lower urinary tract symptoms (LUTS) (01/15/23) Lower urinary tract symptoms (LUTS) Hypertriglyceridemia (01/15/23) Hypertriglyceridemia High blood triglycerides Facial skin lesion Current drinker Alcohol abuse Skin sensation disturbance Skin cancer screening (01/15/23) Seborrheic keratosis (01/15/23) Seborrheic keratoses (01/23/23) Seborrheic dermatitis (01/15/23) Rib pain on left side Rash (03/21/23) Prostate cancer screening (04/23/23) Other seborrheic dermatitis (01/23/23) Joint pain Hyperlipidemia (04/23/23) Foot pain (04/23/23) Elevated blood pressure reading 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 (01/23/23) Class 2 obesity with body mass index (BMI) of 38.0 to 38.9 in adult (04/23/23) BPH (benign prostatic hyperplasia) (04/24/23) Body mass index [BMI] 38.0-38.9, adult (04/23/23) Blood pressure elevated without history of HTN (04/24/23) Gout Dog bite of hand Dog bite Cellulitis Family History (Updated 05/22/23 @ 10:33 by Espinoza Hayden) Father Brain cancer Social History (Updated 05/22/23 @ 10:33 by Espinoza Hayden) Smoking Status: Former smoker Hx Alcohol Use: Yes Preferred Language: Romanian marital status: current occupational status: employed Feels Safe at Home: Yes Review of Systems Review of Systems: A 10 point review of system was obtained and unless otherwise stated here or in history of present illness are negative and noncontributory to chief complaint. Physical Exam Physical Exam: In General: In general this is a 63-year-old male who is alert and oriented x 3 at the time my exam. He is completely asymptomatic at this time he interacts appropriately pleasantly. He is accompanied by his at the time of my exa mination. HEENT: Normocephalic atraumatic pupils are equal round and reactive to light bilaterally. No scleral icterus no conjunctival injection external auditory canals are patent septum is in the midline nose is without discharge oral mucosa is pink and moist without lesion. NECK: Supple no rigidity no lymphadenopathy no thyromegaly no carotid bruits no JVD no masses. HEART: Regular rate and rhythm I do not appreciate any ectopy or rub. No murmur. LUNGS: Clear to auscultation bilaterally and anteriorly with no evidence of adventitious sounds/wheezes rales or rhonchi. ABDOMEN: Soft nontender, no rebound, no peritoneal signs, positive bowel sounds, no appreciable organomegaly. EXTREMITIES: Intact, no peripheral cyanosis, clubbing or edema. Strength is 5 out of 5 in extremities x4, no pathological reflexes. He does have some ecchymoses and resolving abrasions of the left lower extremity from the knee distally into the anterior baca and the patellar surface of his left knee. Again good peripheral pulses. Ultrasound negative. NEUROLOGICAL: Cranial nerves II through XII are grossly intact with no focal deficit elicited upon examination. No tremor. And specifically no clinical evidence of alcohol withdrawal at this time. Results & Data Results & Data Vital Signs (Past 12 Hours) Vital Signs Temp Pulse Pulse Resp BP BP Pulse Ox 11/18/23 15:59 90 19 164/104 H 95 11/18/23 14:32 84 18 154/75 H 95 11/18/23 12:18 82 11/18/23 11:50 36.6 C 88 20 158/100 H 96 O2 Del Method 11/18/23 15:59 Room Air 11/18/23 14:32 Room Air 11/18/23 12:18 11/18/23 11:50 Room Air Code Status & VTE Plan Code Status Full code. I personally discussed with patient at the bedside this afternoon. VTE Prophylaxis Plan VTE Prophylaxis will be ordered: Yes PG Care Time/CCT Total # of Minutes Spent Total Time Spent with Patient: Total time spent is greater than 50% in coordination of care (as documented) at patient's floor/unit and/or counseling patient: Coding Level of Care Code 29271 INT INP/OBS CARE 3/75MIN Diagnoses Chest pain R07.9
[2023-11-18] MEDS: SODIUM CHLORIDE 0.9% 1,000 ML IV SCH (23:33)
[2023-11-19 06:35] LABS: Basophils # (auto) 0.02 K/uL (0.00-0.20); Basophils % (auto) 0.5 %; Eosinophils # (auto) 0.09 K/uL (0.00-0.50); Eosinophils % (auto) 2.3 %; Hematocrit (blood only) 46.2 % (42.0-52.0); Hemoglobin 15.5 g/dl (14.0-18.0); Immature Granulocytes # (auto) 0.01 K/uL (0.01-0.20); Immature Granulocytes % (auto) 0.3 %; Lymphocytes # (auto) 0.89 K/uL (1.20-3.40); Lymphocytes % (auto) 23.1 %; Mean Corpuscular Hemoglobin 30.8 pg (25.0-34.0); Mean Corpuscular Hgb Conc 33.5 g/dL (32.0-36.0); Mean Corpuscular Volume 91.8 fL (80.0-100.0); Mean Platelet Volume 8.9 fL (9.4-12.4); Monocytes # (auto) 0.43 K/uL (0.11-0.59); Monocytes % (auto) 11.1 %; Neutrophils # (auto) 2.42 K/uL (1.40-6.50); Neutrophils % (auto) 62.7 %; Platelet Count 135 K/uL (130-400); RDW Coefficient of Variation 13.2 % (11.5-14.5); RDW Standard Deviation 44.4 fL (36.4-46.3); Red Blood Count 5.03 M/uL (4.70-6.10); White Blood Count 3.86 K/ul (4.8-10.8)
[2023-11-19 07:10] LABS: Albumin Globulin Ratio 1.7 (0.9-2); BUN Creatinine Ratio 17.5 (10-20); Bilirubin,Total 0.9 mg/dl (0.2-1.0); Calcium 8.8 mg/dl (8.6-10.3); Chol HDL Ratio 3.6 (0-5); Creatinine Clr Calc Pharmacy 123.1 ml/min; Est GFR (African American) 109.4 ml/min; Est GFR (Non-African American) 94.4 ml/min; Globulin 2.3 gm/dl (2.5-4.0); Magnesium 1.9 mg/dl (1.7-2.4); Potassium 4.2 mmol/L (3.5-5.1); Total Protein 6.3 gm/dl (6.0-8.3)
[2023-11-19 07:26] LABS: Estimated Average Glucose 111 mg/dl; Hemoglobin A1C 5.5 % (4.5-5.6)
--- NOTE | 2023-11-19 07:41 | Electrocardiogram Report ---
Test Reason : Blood Pressure : / mmHG Vent. Rate : 080 BPM Atrial Rate : 080 BPM P-R Int : 138 ms QRS Dur : 096 ms QT Int : 358 ms P-R-T Axes : 051 045 044 degrees QTc Int : 412 ms Normal sinus rhythm with sinus arrhythmia Normal ECG When compared with ECG of 23-OCT-2014 23:01, No significant change Confirmed by Khai Valadez ([id number]) on 11/19/2023 7:40:59 AM Referred By: REFERRED SELF Confirmed By:Khai Valadez
--- NOTE | 2023-11-19 09:31 | Cardiology Consultation ---
Date of Consultation November 19, 2023 Assessment & Plan (1) Heart palpitations: (2) Chest pain: (3) SOB (shortness of breath): (4) HTN (hypertension): (5) Weight disorder: (6) High blood triglycerides: Plan 63-year-old man with vascular risk factors and significant coronary ca lcifications presents with increased palpitations newly associated with chest discomfort and dyspnea. His ability to walk up to an hour a day without symptoms weighs against significant occlusive coronary artery disease, but in order to exclude a crescendo situation whereby he has had recent progression of his apparent underlying coronary disease he underwent an exercise treadmill test with myocar dial perfusion imaging. No evidence of myocardial infarct or ischemia on stress study, however poor exercise tolerance and hypertensive blood pressure response at relatively low workload. Given these findings, no indication for cardiac catheterization/revascularization at this time, however would work to aggressively control vascular risk factors. Would increase losartan and consider addition of hydrochlorothiazide (losartan/HCTZ 50/12.5) for better blood pressure control. Recommend statin (such as atorvastatin 40 mg daily) to achieve LDL of 70 or less. Would discontinue fenofibrate given interaction with statins and risk of hepatotoxicity, with his recent weight loss and dietary changes he should be at less risk of hypertriglyceridemia. However, will need to monitor triglyceride level off fenofibrate. Encouraged continued weight loss and ongoing aerobic exercise to improve conditioning. His palpitations may well be nonischemic, possibly PVCs (noted on telemetry). Could further characterize with ambulatory telemetry monitoring as an outpatient, but this would be fairly unlikely to change management consultant. Would recommend at least temporary use of low-dose beta-naida (metoprolol succinate 25 mg daily) to suppress ventricular ectopy, particularly given his son's upcoming wedding in the associated excitement/stressors involved. No specific cardiology follow-up necessary, but I would be glad to see him in the office to discuss preventive cardiology as well as to further assess/manage his palpitations. History of Present Illness Reason for Consultation: CP/Palp coronary calcifications, ER d/w Cardio Requesting Physician: Balta Vegas MD Attending Physician: Balta Vegas MD History of Present Illness 63-year-old man with vascular risk factors (age, gender, HTN, dyslipidemia, elevated BMI) but no prior cardiac history who presents with increasing palpitations newly associated with chest discomfort and dyspnea. He notes lifelong sensation of sporadic palpitations occurring infrequently, however in recent months they have been occurring twice a week and just prior to admission he noted an episode where he had transient mild central chest discomfort and dyspnea and felt anxious. He has been walking up to an hour a day regularly and notes no exertional symptoms. He denies any orthostatic lightheadedness, presyncope, or syncope. He has been on Zepbound (tirzepatide) for few months and has lost about 25 p ounds during this time. He notes that the palpitations have increased during this time. Due to increasing concern about his palpitations and new onset of chest discomfort and dyspnea, he reported to the emergency department where ECG and troponin were benign. His D-dimer was mildly elevated and he underwent a chest CT which showed no pulmonary embolism but did note "the coronary arteries are de nsely calcified". Uneventful night. Telemetry showed only sinus rhythm with occasional PVCs. At the time of my evaluation today, he had no somatic complaints. Allergies Allergy/AdvReac Type Severity Reaction Status Date / Time No Known Allergies Allergy Unverified 07/18/23 10:26 Home Medications Medication Instructions Recorded Confirmed Type fenofibrate 160 mg tablet 160 mg PO DAILY 05/14/23 11/18/23 History multivitamin with minerals 1 cap PO DAILY 05/14/23 11/18/23 History losartan 25 mg tablet 25 mg PO DAILY 11/18/23 11/18/23 History tirzepatide (weight loss) 5 mg/0.5 5 mg subcut WK 11/18/23 11/18/23 History mL subcutaneous pen injector (Zepbound) Patient History Medical History No pertinent past medical history Weight disorder Seborrheic dermatitis of scalp Seasonal allergies Onychomycosis Microalbuminuria Lower urinary tract symptoms (LUTS) (01/15/23) Lower urinary tract symptoms (LUTS) Hypertriglyceridemia (01/15/23) Hypertriglyceridemia High blood triglycerides Facial skin lesion Current drinker Alcohol abuse Skin sensation disturbance Skin cancer screening (01/15/23) Seborrheic keratosis (01/15/23) Seborrheic keratoses (01/23/23) Seborrheic dermatitis (01/15/23) Rib pain on left side Rash (03/21/23) Prostate cancer screening (04/23/23) Other seborrheic dermatitis (01/23/23) Joint pain Hyperlipidemia (04/23/23) Foot pain (04/23/23) Elevated blood pressure reading 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 (01/23/23) Class 2 obesity with body mass index (BMI) of 38.0 to 38.9 in adult (04/23/23) BPH (benign prostatic hyperplasia) (04/24/23) Body mass index [BMI] 38.0-38.9, adult (04/23/23) Blood pressure elevated without history of HTN (04/24/23) Gout Dog bite of hand Dog bite Cellulitis Family History Father Brain cancer Social History Smoking Status: Never smoker Second Hand Exposure: No; Do You Dip or Chew Tobacco: No; Hx Alcohol Use: Yes Alcohol type: beer Hx Substance Use: No Preferred Language: Guatemalan Communication Ability: Effective Data Security Consultant Required: No Beliefs That Will Affect Care: None marital status: Current Living Situation: Spouse current occupational status: employed Feels Safe at Home: Yes Assistive Devices: None Physical Exam Physical Exam: No distress. BMI 34.3. BP 169/97 mmHg. Pulse 72 bpm and regular without ectopy. Skin: no ecchymoses or generalized lesions. HEENT: unremarkable. Neck: JVP at the clavicle at 90 degrees, no carotid bruits. Lungs: clear. Cardiac: regular rhythm, normal S1-2, no murmur. Abdomen: benign. Extremities: no edema, pulses intact. Neurologic: normal affect and conversation, nonfocal. Results & Data Vital Signs (Past 12 Hours) Vital Signs Temp Pulse Pulse Resp BP BP Pulse Ox 11/19/23 07:59 97.0 F L 72 17 169/97 H 160/81 H 94 11/19/23 07:40 58 L 11/19/23 03:19 97.5 F L 79 18 151/87 H 97 11/18/23 23:28 97.3 F L 82 18 146/77 H 94 O2 Del Method 11/19/23 07:59 Room Air 11/19/23 07:40 11/19/23 03:19 Room Air 11/18/23 23:28 Room Air PG Care Time/CCT Total # of Minutes Spent Total Time Spent with Patient: Total time spent is greater than 50% in coordination of care (as documented) at patient's floor/unit and/or counseling patient: Coding Level of Care Code 03534 OFFICE CONSULT LVL M Diagnoses Heart palpitations R00.2 Chest pain R07.9 SOB (shortness of breath) R06.02 HTN (hypertension) I10 Weight disorder R63.8 High blood triglycerides E78.1
--- NOTE | 2023-11-19 09:42 | XCELERA ---
[id number]
[2023-11-19] MEDS: ASPIRIN 81 MG ECTAB PO SCH (12:26)
[2023-11-19] MEDS: lisinopril 5 MG TAB PO SCH (12:26)
[2023-11-19] MEDS: FENOFIBRATE NANOCRYSTALLIZED 145 MG TABLET PO SCH (12:27)
--- NOTE | 2023-11-19 13:10 | Myocardial Perfusion Study ---
Date of Service November 19, 2023 Myocardial Perfusion Study [facility] Myocardial Perfusion Study Report ONE DAY NUCLEAR MEDICINE EXERCISE TECHNETIUM 99M MYOCARDIAL PERFUSION SCAN Indication: Chest pain, dyspnea, coronary calcifications, palpitations Baseline ECG: Normal sinus rhythm Stress ECG: Patient exercised for 3 minutes and 30 seconds on a Dale protocol, 6 MET workload. No exercise induced ST changes. No ectopy or dysrhythmias. Reason for stopping: Dyspnea/fatigue, no chest discomfort reported. . Hemodynamics: Peak heart rate of 142 bpm represents 91% age-predicted maximum. Resting BP 194/106 m mercury, peak BP 261/89 mmHg. Technique: For the stress portion of the study mCi of Technetium 99m 32.0 Cardiolite IV was injected at 1122 on 11/19/2023. 15 minutes following the injection, imaging of the heart was performed in multiple projections. For the rest portion of the study, 10.4 mCi of Technetium 99m Cardiolite was injected IV at 0931. One hour following the injection, imaging of the heart was performed in the same projections. Raw images: Rotating raw images were reviewed in detail. Minor left chest wall attenuation minimally impacted the lateral border of the heart. No significant extracardiac pathologic uptake. Perfusion images: Short axis, vertical long axis and horizontal long axis images were reviewed in detail. No visual transient ischemic dilation. No significant fixed or reversible perfusion defects to suggest infarct or ischemia identified. Gated images: LV is non-dilated. EDV 84 ml. ESV31 ml. Estimated ejection fraction 63%. SUMMARY: 1. Exercise treadmill with myocardial perfusion imaging study negative for infarct or ischemia. 2. Normal left ventricular size and systolic function. No wall motion abnormalities. 3. No exercise induced ECG changes. 4. No anginal symptoms. 5. Appropriate heart rate and hypertensive BP response to exercise. 6. No ectopy or dysrhythmias. 7. Fair to poor exercise tolerance. [place] [employer] functional class II. 6 MET workload. MNPG Myocardial perfusion code Indication for Procedure (1) Chest pain: (2) SOB (shortness of breath): (3) Heart palpitations: Procedure Code Procedure 1: Myocardial Perfusion Codes: 21859 Cardiovascular Stress Test, multiple Procedure 2: Myocardial Perfusion Codes: 10831 Cardiovascular Stress Test, supervision only Procedure 3: Myocardial Perfusion Codes: 86842 Cardiovascular Stress Test, interpretation and report
--- NOTE | 2023-11-19 16:44 | Discharge Summary ---
Discharge Summary Date of Service November 19, 2023 Principal Dx & Hospital Course #1 = Principal Diagnosis (1) Chest pain: Presented with increasing chest palpitations, chest discomfort, and dyspnea. Reports years of intermittent infrequent palpitations, however in the past few months these have been occurring twice a week. Prior to admission, this is happening more frequently with associated central chest pain so patient presented for further evaluation and treatment. - EKG on admission revealed normal sinus rhythm without acute ST abnormalities. Negative troponin. - Positive D-dimer. CTA of chest negative for pulmonary embolism, but positive for coronary calcifications which appear to be heavy on the CT. > Hepatic steatosis/fatty liver also noted on CTA. Recommend outpatient follow-up for this. - Patient also injured his left leg a few weeks ago, still ecchymotic and mildly swollen. Venous Dopplers of bilateral lower extremities negative for DVT. - Lipid panel revealed triglycerides 148, cholesterol 195, LDL 111, VLDL 30, HDL 54, cholesterol/HDL ratio 3.6 - Cardiology consulted > Echocardiogram 11/18 revealed EF = 65-70%. No significant valvular disease. > Myocardial stress test revealed no evidence of myocardial infarct or ischemia on stress study, however poor exercise tolerance and hypertensive blood pressure response and relatively low workload. No current indication for cardiac catheterization/revascularization, however needs aggressive control of vascular risk factors. > His palpitations may be nonischemic, possibly PVCs noted on telemetry. Could further characterize with ambulatory telemetry monitoring as an outpatient. > No specific cardiology follow-up necessary, but can follow-up with Dr. Valadez to discuss preventative cardiology and further assess/manage his palpitations if desired. - Losartan increased to 50 mg daily for better blood pressure control - Start HCTZ 12.5 mg daily for better blood pressure control - Start atorvastatin 40 mg daily to achieve LDL of 70 or less - Discontinue fenofibrate due to interaction with statins and risk of hepatotoxicity. Monitor triglyceride level off fenofibrate. - Start metoprolol succinate 25 mg daily to suppress ventricular ectopy - Recommended PCP follow-up for further evaluation and management in setting of new medications (2) Weight disorder: Recent weight loss of 25 pounds with commencement of Zeppound approximately 10 weeks ago. Encouraged continued weight loss and ongoing aerobic exercise to improve conditioning. (3) Current drinker: Patient reports daily alcohol use of 5 beers daily - sometimes less, sometimes more. No clinical evidence of alcohol withdrawal during hospitalization. Plan CODE STATUS: Full code Notes For Next Care Provider Recommend outpatient follow-up for hepatic steatosis/fatty liver noted on CTA Consider outpatient ambulatory telemetry monitoring due to palpitations Monitor triglyceride level off of fenofibrate Medication Changes From Visit Losartan increased to 50 mg daily Started HCTZ 12.5 mg daily Started atorvastatin 40 mg daily Discontinued fenofibrate Started metoprolol succinate 25 mg daily Admission HPI Per Admitting Provider This is a 63-year-old male who over the last few days has had some palpitations which he has had for many years on and off. However they have been lasting longer and have been associated with some chest discomfort mid substernal. There is chest comfort but nonradiating. There is been no associated shortness of breath or diaphoresis. Due to his increasing symptomatology presented the ER for further evaluation and treatment. Further history taking the patient commenced Zepbound approximately 10 weeks ago he is down about 25 pounds in 10 weeks. He is on this for weight control. He also admits to drinking at least 5 beers a day sometimes slightly more sometimes slightly less. 2 drinks were yesterday. None today. He has never gone through alcohol withdrawal that he knows of. Upon presentation to the ER the patient had a reassuring EKG normal sinus rhythm without acute ST-T abnormalities. He had a negative troponin. He had a positive D-dimer. He had a CT of the chest which was negative for pulmonary embolism but positive for coronary calcifications which appear to be heavy on the CT. In addition he had hepatosteatosis noted on CTA of the chest. He injured his left leg some weeks ago. He is still ecchymotic and mildly swollen therefore ultrasounds of the lower extremities were performed which were negative for DVT. In the ER the patient had full-strength aspirin. We were called to admit the patient for further evaluation and treatment. Consultation was obtained with cardiology from the ER provider who recommended admission for echocardiogram serial troponins and stress test in the morning. Admission Exam Per Admitting Provider In General: In general this is a 63-year-old male who is alert and oriented x 3 at the time my exam. He is completely asymptomatic at this time he interacts a ppropriately pleasantly. He is accompanied by his at the time of my examination. HEENT: Normocephalic atraumatic pupils are equal round and reactive to light bilaterally. No scleral icterus no conjunctival injection external auditory canals are patent septum is in the midline nose is without discharge oral mucosa is pink and moist without lesion. NECK: Supple no rigidity no lymphadenopathy no thyromegaly no carotid bruits no JVD no masses. HEART: Regular rate and rhythm I do not appreciate any ectopy or rub. No murmur. LUNGS: Clear to auscultation bilaterally and anteriorly with no evidence of adventitious sounds/wheezes rales or rhonchi. ABDOMEN: Soft nontender, no rebound, no peritoneal signs, positive bowel sounds, no appreciable organomegaly. EXTREMITIES: Intact, no peripheral cyanosis, clubbing or edema. Strength is 5 out of 5 in extremities x4, no pathological reflexes. He does have some ecchymoses and resolving abrasions of the left lower extremity from the knee distally into the anterior baca and the patellar surface of his left knee. Again good peripheral pulses. Ultrasound negative. NEUROLOGICAL: Cranial nerves II through XII are grossly intact with no focal deficit elicited upon examination. No tremor. And specifically no clinical evidence of alcohol withdrawal at this time. Discharge Exam General: No acute distress, nondiaphoretic, well-developed, well-nourished. Skin: The skin was without rashes, erythema, edema, or bruising. Cardiac: Regular rate and rhythm without murmurs gallops or rubs. Pulm: Clear to auscultation bilaterally without wheezes, rales or rhonchi. No respiratory distress. Abdominal: Soft, nontender, nondistended. Bowel sounds present. Neuro: A&O x3. No focal neurological deficits. Updated Medication List Medication Instructions Recorded Confirmed Type multivitamin with minerals 1 cap PO DAILY 05/14/23 11/18/23 History tirzepatide (weight loss) 5 mg/0.5 5 mg subcut WK 11/18/23 11/18/23 History mL subcutaneous pen injector (Zepbound) atorvastatin 40 mg tablet 40 mg PO DAILY #30 tabs 11/19/23 Rx hydrochlorothiazide 12.5 mg capsule 12.5 mg PO DAILY #30 caps 11/19/23 Rx losartan 50 mg tablet 50 mg PO DAILY #30 tabs 11/19/23 Rx metoprolol succinate 25 mg 25 mg PO DAILY #30 tabs 11/19/23 Rx tablet,extended release 24 hr Hospital Stay Data Consultations 11/18/23 15:43 ED Decision to Admit Stat 11/18/23 16:12 Consult Cardiology Routine Diagnostic Imagining Performed Chest X-Ray 11/18/23 12:03 SINGLE VIEW CHEST CLINICAL HISTORY: Dysrhythmia FINDINGS: An AP, portable, upright chest radiograph is compared to study dated 07/11/2019. The heart is enlarged noting atherosclerotic calcification of the thoracic aorta. The pulmonary vasculature is not congested. Emphysematous change is suspected. Chronic interstitial thickening is similar to previous. There is mild bibasilar scarring/atelectasis. No airspace consolidation or large pleural effusion is identified. No pneumothorax is seen. The bony thorax is grossly intact. IMPRESSION: Cardiomegaly with no active disease in the chest. ACT 112: Negative or not required by law. Electronically signed by: King Ruiz M.D. 11/18/2023 1:11 PM Chest CTA 11/18/23 12:54 CT ANGIOGRAM OF THE CHEST CLINICAL HISTORY: Atypical chest pain. Palpitations. D-dimer. COMPARISON STUDY: Chest x-ray dated 11/18/2023. TECHNIQUE: Following the IV administration of 112 cc of Optiray 320, CT angiogram of the chest was performed from the upper abdomen to the thoracic inlet utilizing the pulmonary embolus protocol. Images are reviewed in the axial, sagittal, and coronal planes. 3-D MIPS images are created and assessed. IV contrast was administered without complication. A dose lowering technique was utilized adhering to the principles of ALARA. CT DOSE: 1024.36 mGy.cm FINDINGS: Thyroid: Imaged portions of the thyroid gland are normal in size and attenuation. Thoracic aorta: There is atherosclerotic calcification of the thoracic aorta, which is normal in caliber and demonstrates standard 3-vessel arch anatomy. No dissection is seen. Pulmonary vasculature: The pulmonary trunk is normal in caliber. There are no filling defects identified in main, lobar, or segmental pulmonary branches to suggest pulmonary embolus. Heart: The heart is enlarged and without pericardial effusion. The coronary arteries are densely calcified. Lungs and pleural spaces: There is no airspace consolidation or pleural effusion. Dependent scarring/atelectasis is noted at the lung bases. The trachea and central airways are clear. Mediastinum: There is no mediastinal lymphadenopathy. Priya: Clear. Axillae: There is no axillary lymphadenopathy. Upper abdomen: The liver is enlarged and steatotic. Skeletal structures: No lytic or blastic bony lesions are seen. Mild degenerative change is seen in the shoulders and thoracic spine. IMPRESSION: 1. There is no evidence of pulmonary embolus in the main, lobar, or segmental pulmonary arteries. 2. There is no airspace consolidation or pleural effusion. 3. Cardiomegaly noting advanced coronary artery atherosclerosis. 4. Hepatomegaly and hepatic steatosis. 5. Additional findings as above. ACT 112: Negative or not required by law. Electronically signed by: King Ruiz M.D. 11/18/2023 2:33 PM Venous Doppler Study 11/18/23 12:54 ULTRASOUND LEFT LOWER EXTREMITY VENOUS CLINICAL HISTORY: Left leg swelling. COMPARISON STUDY: No priors. TECHNIQUE: Real-time, grayscale, and color Doppler sonography of the deep veins of the left lower extremity was performed from the inguinal crease to the calf. Compression and augmentation were utilized. FINDINGS: There is no sonographic evidence of deep venous thrombosis identified in the left lower extremity. The common femoral, superficial femoral, and popliteal veins are patent and normally compressible. The greater saphenous vein and the profunda femoris vein at the junction with the common femoral vein are clear. The visualized calf veins are patent. IMPRESSION: There is no sonographic evidence of deep venous thrombosis identified in the left lower extremity. ACT 112: Negative or not required by law. Electronically signed by: King Ruiz M.D. 11/18/2023 2:16 PM Echocardiogram 11/19/2023 Interpretation summary: No prior study for comparison. Left ventricular systolic function is normal. Left ventricular ejection fraction= 65-70%. The left ventricular wall motion is normal. There is mild concentric left ventricular hypertrophy. The right ventricle is normal in size and function. Left ventricular systolic pressure is elevated at 30-40 mmHg. No significant valvular disease. Myocardial stress test 11/19/2023 SUMMARY: 1. Exercise treadmill with myocardial perfusion imaging study negative for infarct or ischemia. 2. Normal left ventricular size and systolic function. No wall motion abnormalities. 3. No exercise induced ECG changes. 4. No anginal symptoms. 5. Appropriate heart rate and hypertensive BP response to exercise. 6. No ectopy or dysrhythmias. 7. Fair to poor exercise tolerance. [place] [employer] functional class II. 6 MET workload. Pending Results Patient Have Any Pending Studies at Discharge: No Discharge Instructions Given to Patient (Per Discharging Provider) Mr. Recinos, Pedrito were admitted to the hospital because of increased chest palpitations with chest discomfort and shortness of breath. You had an extensive cardiac workup, including CT of your chest, venous Doppler studies of your legs, echocardiogram, and stress test. Additionally, you were evaluated by cardiology while in the hospital. Your cardiac workup was negative and there was no evidence of myocardial infarct or ischemia. Therefore, there is no indication for cardiac catheterization/revascularization at this time. However, due to the poor exercise tolerance and high blood pressure readings, a more aggressive control for cardiovascular risk factors is recommended. Your prescriptions have been sent to the [facility] pharmacy on [facility] Upon discharge from the hospital: * Increase losartan to 50 mg daily. This is for better blood pressure control. * Start hydrochlorothiazide (diuretic) 12.5 mg daily. This is for better blood pressure control. * Start atorvastatin 40 mg daily. This is to achieve better cholesterol control. * Start metoprolol succinate 25 mg daily. This is a beta-naida that helps control heart rate and extra/abnormal heartbeats. * Stop taking fenofibrate. This is because fenofibrate interacts with statins and increases the risk of liver injury. * No specific cardiology follow-up is required, but if you would like to see cardiology in the office to discuss preventative cardiac medicine as well as to further assess/manage your chest palpitations, you can call Dr. Valadez's office to schedule an appointment, phone number [phone]. * You can follow-up with your PCP to review your hospital course and medications. You can call their office to schedule a hospital follow-up appointment. Please return to the hospital if you experience any of the following: Chest pain/pressure/tightness/burning, heart palpitations, pain in either arm/shoulder/back/neck/jaw/stomach, shortness of breath, difficulty breathing, cold sweats, lightheadedness, dizziness, passing out, confusion. It was a pleasure taking care of you while you were in the hospital, Pao Rahman PA-C Total Time Total Time Spent Total Time Spent (In Minutes): Greater than 30 minutes spent completing this discharge process including direct patient care, medication reconciliation, documentation, review of labs and images, and coordination of care. Coding Level of Care Code 47378 INP/OBS DISCH >30 MIN Diagnoses Chest pain R07.9 Weight disorder R63.8 Current drinker Z78.9
[2023-11-20] MEDS ORDERED: LOSARTAN POTASSIUM 25 MG TAB PO SCH (09:00)
== END 2023-11-19 16:23 | disposition home or self-care (01) ==
LOC: ED 11:47 → 4W 11:47 → SUATTDRO 16:12 → 4W 18:08